=== PATIENT | male | born 1955 | race Two or more races ===

== ENCOUNTER 2016-08-19 18:55 | Inpatient (IN) | payer OTHER ==
[~2016-08-19] VITALS: Ht 177.8 cm; Wt 83.0 kg
[2016-08-19 19:46] LABS: TROPONIN I < 0.30 ng/mL (<=0.30)
[2016-08-19 19:47] LABS: ALBUMIN/GLOBULIN RATIO 1.8 (1.0-2.7); CALCIUM 9.3 mg/dL (8.6-10.2); CREATININE 1.4 mg/dL (0.7-1.2); GLOMERULAR FILTRATION RATE 51.2 mL/min (>60); POTASSIUM 3.5 mEQ/L (3.4-4.9); TOTAL PROTEIN 6.5 g/dL (6.6-8.7)
[2016-08-19 19:55] LABS: BASOPHILS % (AUTO) 0.9 % (0.0-2.0); LYMPHOCYTES % (AUTO) 20.5 % (20.0-45.0); MEAN CORPUSCULAR HEMOGLOBIN 32.2 PG (27.0-31.0); MEAN CORPUSCULAR HGB CONC 34.2 G/DL (32.0-36.0); MEAN CORPUSCULAR VOLUME 94 FL (80-99); MEAN PLATELET VOLUME 6.8 FL (6.5-10.1); MONOCYTES % (AUTO) 6.7 % (1.0-10.0); PLATELET COUNT 221 K/UL (150-450); RED CELL DISTRIBUTION WIDTH 11.9 % (11.6-14.8); WHITE BLOOD COUNT 7.6 K/UL (4.8-10.8)
[2016-08-19 21:46] VITALS: BP 115/69
--- NOTE | 2016-08-19 21:56 | Emergency Room Report ---
History of Present Illness General Chief Complaint: Chest Pain Source: Patient, Significant Other Present Illness HPI 61-year-old male presents to ED complaining of chest pain. Started at home tonight just prior to arrival. Started at rest. Pain is pressure-like, midsternal, nonradiating, initially a 8/10. Was given aspirin and nitroglycerin. At this time patient states he is no longer any chest pain. Denies shortness of breath. Notes history of hypertension and is on multiple medications. Denies smoking or drug use. No other aggravating relieving factors. Denies any other associated symptoms Allergies: Coded Allergies: No Known Allergies (Unverified , 08/19/16) Patient History Past Medical History: HTN Past Surgical History: none Pertinent Family History: none Social History: Denies: alcohol use, drug use, smoking Immunizations: UTD Reviewed Nursing Documentation: PMH: Agreed, PSxH: Agreed Nursing Documentation-PMH Hx Hypertension: Yes Review of Systems All Other Systems: negative except mentioned in HPI Physical Exam Vital Signs Date Time Temp Pulse Resp B/P Pulse Ox O2 Delivery O2 Flow Rate FiO2 08/19/16 18:50 100 18 142/90 96 Room Air Sp02 EP Interpretation: reviewed, normal General Appearance: no apparent distress, alert, GCS 15, non-toxic Head: normocephalic, atraumatic Eyes: bilateral eye PERRL, bilateral eye normal inspection ENT: hearing grossly normal, normal pharynx, no angioedema, normal voice Neck: full range of motion, supple/symm/no masses Respiratory: chest non-tender, lungs clear, normal breath sounds, speaking full sentences Cardiovascular #1: regular rate, rhythm, no edema Cardiovascular #2: 2+ carotid (R), 2+ carotid (L), 2+ radial (R), 2+ radial (L) , 2+ dorsalis pedis (R), 2+ dorsalis pedis (L) Gastrointestinal: normal bowel sounds, non tender, soft, non-distended, no guarding, no rebound Rectal: deferred Genitourinary: normal inspection, no CVA tenderness Musculoskeletal: back normal, gait/station normal, normal range of motion, non- tender Neurologic: alert, oriented x3, responsive, motor strength/tone normal, sensory intact, speech normal Psychiatric: judgement/insight normal, memory normal, mood/affect normal, no suicidal/homicidal ideation Reflexes: 3+ bicep (R), 3+ bicep (L), 3+ tricep (R), 3+ tricep (L), 3+ knee (R) , 3+ knee (L) Skin: normal color, no rash, warm/dry, well hydrated Lymphatic: no adenopathy Medical Decision Making Diagnostic Impression: Primary Impression: ACS (acute coronary syndrome) ER Course Hospital Course 61-year-old male presents ED complaining of CP. relieved with ASA/Nitro Differential diagnoses include: SD/unstable angina, contusion, muscle strain, PTX, rib fracture Clinical course Patient placed on stretcher. on information assurance specialist. After initial history and physical I ordered labs, EKG, chest x-ray, IVFs labs reviewed- no leukocytosis, hb/hct stable, electrolytes ok, trop negative EKG - NSR, no acute changes interpreted by me Chest x-ray- unremarkable Case discussed with Dr. Casas and he agreed to accept the patient to his service for further care and support I. I feel this is a highly complex case requiring extensive working including EKG/Rhythm strip, Xray/CT/US, Blood/urine lab work, repeat exams while in ED, and administration of strong opiates/narcotics for pain control, admission to hospital or close patient follow up. Diagnosis - ACS admitted to telemetry in serious condition Labs Test 08/19/16 19:20 White Blood Count 7.6 K/UL (4.8-10.8) Red Blood Count 4.70 M/UL (4.70-6.10) Hemoglobin 15.2 G/DL (14.2-18.0) Hematocrit 44.3 % (42.0-52.0) Mean Corpuscular Volume 94 FL (80-99) Mean Corpuscular Hemoglobin 32.2 PG (27.0-31.0) Mean Corpuscular Hemoglobin Concent 34.2 G/DL (32.0-36.0) Red Cell Distribution Width 11.9 % (11.6-14.8) Platelet Count 221 K/UL (150-450) Mean Platelet Volume 6.8 FL (6.5-10.1) Neutrophils (%) (Auto) 71.0 % (45.0-75.0) Lymphocytes (%) (Auto) 20.5 % (20.0-45.0) Monocytes (%) (Auto) 6.7 % (1.0-10.0) Eosinophils (%) (Auto) 1.0 % (0.0-3.0) Basophils (%) (Auto) 0.9 % (0.0-2.0) Sodium Level 144 mEQ/L (135-145) Potassium Level 3.5 mEQ/L (3.4-4.9) Chloride Level 101 mEQ/L (98-107) Carbon Dioxide Level 25 mEQ/L (20-30) Anion Gap 18 (5-15) Blood Urea Nitrogen 22 mg/dL (7-23) Creatinine 1.4 mg/dL (0.7-1.2) Estimat Glomerular Filtration Rate 51.2 mL/min (>60) Glucose Level 155 mg/dL (74-106) Calcium Level 9.3 mg/dL (8.6-10.2) Total Bilirubin 0.4 mg/dL (0.0-1.2) Aspartate Amino Transf (AST/SGOT) 20 U/L (5-40) Alanine Aminotransferase (ALT/SGPT) 14 U/L (3-41) Alkaline Phosphatase 49 U/L (40-129) Total Creatine Kinase 72 U/L (38-174) Creatine Kinase MB 2.0 ng/mL (< 6.7) Creatine Kinase MB Relative Index 2.7 Troponin I < 0.30 ng/mL (<=0.30) Pro-B-Type Natriuretic Peptide 65 pg/mL (0-125) Total Protein 6.5 g/dL (6.6-8.7) Albumin 4.2 g/dL (3.5-5.2) Globulin 2.3 g/dL Albumin/Globulin Ratio 1.8 (1.0-2.7) EKG Diagnostic Results Rate: normal Rhythm: NSR ST Segments: no acute changes ASA given to the pt in ED: No - given by ems Rhythm Strip Diag. Results EP Interpretation: yes Rhythm: NSR, no PVC's, no ectopy Chest X-Ray Diagnostic Results Chest X-Ray Ordered: Yes # of Views/Limited/Complete: 1 View EP Interpretation: Yes Interpretation: no consolidation, no effusion, no pneumothorax, no acute cardiopulmonary disease Indication: Chest Pain Impression: No acute disease Interpreting ER Provider: David Anderson MD Last Vital Signs Date Time Temp Pulse Resp B/P Pulse Ox O2 Delivery O2 Flow Rate FiO2 08/19/16 21:46 67 16 115/69 95 Room Air Status: improved Disposition: ADMITTED INPATIENT Condition: Serious Referrals: Kp QUINONEZ,REFERRING (PCP) DAVID ANDERSON M.D. Aug 19, 2016 21:56
[2016-08-19] MEDS ORDERED: DuoNeb 0.5-3(2.5)mg/3ml neb HHN PRN (22:00)
[2016-08-19] MEDS ORDERED: Nitroglycerin Subl 0.4mg tab (Bottle Of 25) SL PRN (22:00)
[2016-08-19] MEDS ORDERED: Diltiazem 25mg/5ml IV PRN (22:00)
[2016-08-19] MEDS ORDERED: Miralax 17gm pkt ORAL PRN (22:00)
[2016-08-19] MEDS ORDERED: Morphine Sulfate 2mg/ml Inj IVP PRN (22:00)
[2016-08-19] MEDS ORDERED: Enalaprilat 2.5mg/2ml Inj IV PRN (22:00)
[2016-08-19] MEDS ORDERED: MULTI VITAMIN1 EACH ORAL (23:28)
[2016-08-19] MEDS ORDERED: VITAMIN D1000 UNI1 ORAL (23:42)
[2016-08-19] MEDS ORDERED: CARDIZEM30 M1 PO (23:42)
[2016-08-19] MEDS ORDERED: VITAMIN C500 M1 ORAL (23:42)
[2016-08-19] MEDS ORDERED: CHLORTHALIDONE25 MG ORAL ×2 (23:42)
[2016-08-19] MEDS ORDERED: GLUCOSAMIN-CHO1 EAC1 PO (23:42)
[2016-08-19] MEDS ORDERED: APRESOLINE100 MG ORAL (23:42)
[2016-08-20] VITALS (7 sets, daily range): BP systolic 127–140; BP diastolic 76–94
[2016-08-20 07:08] LABS: BASOPHILS % (AUTO) 0.6 % (0.0-2.0); EOSINOPHILS % (AUTO) 1.5 % (0.0-3.0); LYMPHOCYTES % (AUTO) 19.6 % (20.0-45.0); MEAN CORPUSCULAR HEMOGLOBIN 32.2 PG (27.0-31.0); MEAN CORPUSCULAR HGB CONC 33.8 G/DL (32.0-36.0); MEAN CORPUSCULAR VOLUME 95 FL (80-99); MEAN PLATELET VOLUME 6.9 FL (6.5-10.1); MONOCYTES % (AUTO) 8.9 % (1.0-10.0); NEUTROPHILS % (AUTO) 69.3 % (45.0-75.0); PLATELET COUNT 215 K/UL (150-450); WHITE BLOOD COUNT 6.2 K/UL (4.8-10.8)
[2016-08-20 07:14] LABS: PROTHROMBIN TIME 10.3 SEC (9.30-11.50)
[2016-08-20 07:31] LABS: CHOLESTEROL 147 mg/dL (< 200); CHOLESTEROL/HDL RATIO 3.1 (3.3-4.4); CRP QUANT < 0.3 mg/dL (< 0.5); HEMOLYSIS 9; LDL CHOLESTEROL (CALC.) 83 mg/dL (60-99)
[2016-08-20 08:16] LABS: TROPONIN I < 0.30 ng/mL (<=0.30)
[2016-08-20] MEDS: Aspirin Baby 81mg ORAL SCH ×2 (08:57→09:00)
[2016-08-20] MEDS: Heparin 5000 units/ml inj SUBQ SCH ×3 (08:58→20:58)
[2016-08-20] MEDS ORDERED: Ketorolac 30mg Inj IV PRN (12:30)
--- NOTE | 2016-08-20 12:30 | History and Physical ---
History of Present Illness General Date patient seen: Aug 20, 2016 Reason for Hospitalization: Chest Pain Present Illness HPI 61-year-old male with hx of HTN presents to ED complaining of chest pain. Started at rest. Pain is pressure-like, midsternal, nonradiating, initially a 8 /10. Was given aspirin and nitroglycerin. At this time patient states he is no longer any chest pain. Denies shortness of breath. Notes history of hypertension and is on multiple medications. Denies smoking or drug use. No other aggravating relieving factors. Denies any other associated symptoms Allergies: Coded Allergies: No Known Allergies (Unverified , 08/19/16) Medication History Scheduled Ascorbic Acid* (Vitamin C*), 500 MG ORAL DAILY, (Reported) Chlorthalidone* (Chlorthalidone*), 12.5 MG ORAL DAILY, (Reported) Chlorthalidone* (Chlorthalidone*), 25 MG ORAL EVERY OTHER DAY, (Reported) Cholecalciferol (Vitamin D3)* (Vitamin D*), 2,000 UNITS ORAL DAILY, (Reported) Diltiazem Hcl* (Cardizem*), 30 MG PO TID, (Reported) Hydralazine HCl (Hydralazine HCl), 100 MG ORAL EVERY 8 HOURS, (Reported) Multivitamin (Multi Vitamin Daily), 1 TAB ORAL DAILY, (Reported) Miscellaneous Medications Gluc/Prince-Msm#2/C/D3/Ki/Born (Fdpwbxytie-Amqfkpaqdyo-Xui Tab), 1 EACH PO, ( Reported) Patient History Healthcare decision maker N Resuscitation status Full Code Advanced Directive on File No Past Medical/Surgical History Past Medical/Surgical History: (1) HTN (hypertension) Review of Systems Constitutional: Reports: no symptoms ENT: Reports: no symptoms Physical Exam General Appearance: WD/WN Lines, tubes and drains: peripheral HEENT: normocephalic, atraumatic Neck: non-tender, normal alignment Respiratory/Chest: chest wall non-tender, normal breath sounds Breasts: no masses Cardiovascular/Chest: normal peripheral pulses Abdomen: non tender Genitourinary/Rectal: normal genital exam Extremities: normal range of motion Last 24 Hour Vital Signs Date Time Temp Pulse Resp B/P Pulse Ox O2 Delivery O2 Flow Rate FiO2 08/20/16 08:00 95.7 59 17 127/82 95 08/20/16 07:30 66 20 Room Air 21 08/20/16 04:00 97.9 62 18 132/76 95 Room Air 08/20/16 04:00 63 08/20/16 01:00 62 20 Room Air 21 08/20/16 00:00 58 08/20/16 00:00 97.9 64 18 132/76 95 Room Air 08/19/16 21:46 67 16 115/69 95 Room Air 08/19/16 21:46 67 16 115/69 95 Room Air 08/19/16 19:40 100 18 Room Air 08/19/16 18:50 100 18 142/90 96 Room Air Intake and Output 08/19/16 08/20/16 19:00 07:00 Intake Total 240 ml Output Total 0 ml Balance 240 ml Intake Oral 240 ml Output Urine Total 0 ml Laboratory Tests Test 08/19/16 19:20 08/20/16 05:35 White Blood Count 7.6 K/UL (4.8-10.8) 6.2 K/UL (4.8-10.8) Red Blood Count 4.70 M/UL (4.70-6.10) 4.80 M/UL (4.70-6.10) Hemoglobin 15.2 G/DL (14.2-18.0) 15.5 G/DL (14.2-18.0) Hematocrit 44.3 % (42.0-52.0) 45.8 % (42.0-52.0) Mean Corpuscular Volume 94 FL (80-99) 95 FL (80-99) Mean Corpuscular Hemoglobin 32.2 PG (27.0-31.0) H 32.2 PG (27.0-31.0) H Mean Corpuscular Hemoglobin Concent 34.2 G/DL (32.0-36.0) 33.8 G/DL (32.0-36.0) Red Cell Distribution Width 11.9 % (11.6-14.8) 12.0 % (11.6-14.8) Platelet Count 221 K/UL (150-450) 215 K/UL (150-450) Mean Platelet Volume 6.8 FL (6.5-10.1) 6.9 FL (6.5-10.1) Neutrophils (%) (Auto) 71.0 % (45.0-75.0) 69.3 % (45.0-75.0) Lymphocytes (%) (Auto) 20.5 % (20.0-45.0) 19.6 % (20.0-45.0) L Monocytes (%) (Auto) 6.7 % (1.0-10.0) 8.9 % (1.0-10.0) Eosinophils (%) (Auto) 1.0 % (0.0-3.0) 1.5 % (0.0-3.0) Basophils (%) (Auto) 0.9 % (0.0-2.0) 0.6 % (0.0-2.0) Sodium Level 144 mEQ/L (135-145) Potassium Level 3.5 mEQ/L (3.4-4.9) Chloride Level 101 mEQ/L (98-107) Carbon Dioxide Level 25 mEQ/L (20-30) Anion Gap 18 (5-15) H Blood Urea Nitrogen 22 mg/dL (7-23) Creatinine 1.4 mg/dL (0.7-1.2) H Estimat Glomerular Filtration Rate 51.2 mL/min (>60) Glucose Level 155 mg/dL (74-106) H Calcium Level 9.3 mg/dL (8.6-10.2) Total Bilirubin 0.4 mg/dL (0.0-1.2) Aspartate Amino Transf (AST/SGOT) 20 U/L (5-40) Alanine Aminotransferase (ALT/SGPT) 14 U/L (3-41) Alkaline Phosphatase 49 U/L (40-129) Total Creatine Kinase 72 U/L (38-174) Pending Creatine Kinase MB 2.0 ng/mL (< 6.7) Creatine Kinase MB Relative Index 2.7 Troponin I < 0.30 ng/mL (<=0.30) < 0.30 ng/mL (<=0.30) Pro-B-Type Natriuretic Peptide 65 pg/mL (0-125) Total Protein 6.5 g/dL (6.6-8.7) L Albumin 4.2 g/dL (3.5-5.2) Globulin 2.3 g/dL Albumin/Globulin Ratio 1.8 (1.0-2.7) Prothrombin Time 10.3 SEC (9.30-11.50) Prothromb Time International Ratio 1.0 (0.9-1.1) Activated Partial Thromboplast Time 28 SEC (23-33) Uric Acid Pending C-Reactive Protein, Quantitative < 0.3 mg/dL (< 0.5) Triglycerides Level 87 mg/dL (< 150) Cholesterol Level 147 mg/dL (< 200) LDL Cholesterol 83 mg/dL (60-99) HDL Cholesterol 47 mg/dL (> 60) Cholesterol/HDL Ratio 3.1 (3.3-4.4) L Thyroid Stimulating Hormone (TSH) 2.040 uIU/mL (0.300-4.500) Height (Feet): 5 Height (Inches): 10.00 Weight (Pounds): 183 Medications Current Medications Medications (Trade) Dose Ordered Sig/Enrique Route PRN Reason Start Time Stop Time Status Last Admin Dose Admin Acetaminophen (Tylenol) 650 mg Q4H PRN ORAL FEVER 08/19/16 22:00 09/18/16 21:59 Albuterol/ Ipratropium (DuoNeb 0.5-3(2.5)mg/3ml) 3 ml EVERY 4 HOURS PRN HHN Shortness of Breath 08/19/16 22:00 08/24/16 21:59 Aspirin (ASA) 162 mg DAILY ORAL 08/20/16 09:00 09/19/16 08:59 Diltiazem HCl (Cardizem) 10 mg EVERY HOUR PRN IV heart rate more than 120, 08/19/16 22:00 09/18/16 21:59 Enalaprilat (Vasotec) 2.5 mg EVERY 6 HOURS PRN IV sbp more than 160 08/19/16 22:00 09/18/16 21:59 Heparin Sodium (Porcine) (Heparin 5000 units/ml) 5,000 units EVERY 12 HOURS SUBQ 08/20/16 09:00 09/19/16 08:59 Ketorolac Tromethamine (Toradol 30mg) 30 mg Q6HR PRN IV moderate pain ( 4-6) 08/20/16 12:30 08/25/16 12:29 Morphine Sulfate (Morphine Sulfate) 2 mg EVERY 4 HOURS PRN IVP severe Pain (Pain Scale 7-10) 08/19/16 22:00 08/26/16 21:59 Nitroglycerin (Ntg) 0.4 mg Every 5 Minutes PRN SL Prn Chest Pain 08/19/16 22:00 09/18/16 21:59 Ondansetron HCl (Zofran) 4 mg Q6H PRN IVP Nausea & Vomiting 08/19/16 22:00 09/18/16 21:59 Pantoprazole (Protonix) 40 mg DAILY ORAL 08/20/16 09:00 09/19/16 08:59 08/20/16 08:56 Polyethylene Glycol (Miralax) 17 gm DAILYPRN PRN ORAL Constipation 08/19/16 22:00 09/18/16 21:59 Temazepam (Restoril) 15 mg HSPRN PRN ORAL Insomnia 08/19/16 22:00 08/26/16 21:59 Assessment/Plan Problem List: (1) ACS (acute coronary syndrome) ICD Codes: I24.9 - Acute ischemic heart disease, unspecified SNOMED: 598000914 (2) HTN (hypertension) ICD Codes: I10 - Essential (primary) hypertension SNOMED: 72341022 Assessment/Plan telemetry monitoring serial ekg, torponin echo monitor bp dvt prophylaxis TORIE MILLER Aug 20, 2016 12:30
[2016-08-20 12:48] LABS: URIC ACID 6.1 mg/dL (3.0-7.5)
--- NOTE | 2016-08-20 14:45 | Cardiology Report ---
APPROVED REPORT EXAM: Two-dimensional and M-mode echocardiogram with Doppler and color Doppler. INDICATION Left ventricular function M-Mode DIMENSIONS IVSd1.3 (0.7-1.1cm)Left Atrium (MM)2.3 (1.6-4.0cm) LVDd4.6 (3.5-5.6cm)Aortic Root3.0 (2.0-3.7cm) PWd1.1 (0.7-1.1cm)Aortic Cusp Exc.1.9 (1.5-2.0cm) LVDs3.6 (2.5-4.0cm) PWs1.0 cm Technically difficult study due to poor acoustic windows. Images taken subcostal view. Normal left ventricular chamber size, systolic function and wall motion. Left ventricular ejection fraction estimated to be 55-60 %. No evidence of left ventricular hypertrophy. No evidence of pericardial fat or effusion. All other cardiac chamber sizes are within normal limits. Focal aortic valve sclerosis with adequate cusp excursion Thickened mitral valve leaflets with normal excursion. Mitral annulus and aortic root calcification. Pulmonic valve not well visualized. Normal tricuspid valve structure. IVC is normal in size with physiologic collapse. A color flow and spectral Doppler study was performed and revealed: No aortic regurgitation. No mitral regurgitation. No tricuspid regurgitation. Tricuspid systolic velocities suggests peak right ventricular systolic pressure of 19 mmHg
--- NOTE | 2016-08-20 15:09 | Diagnostic Imaging Report ---
Indications: Chest pain Technique: Findings: Comparison: None Hyperlucency in attenuation of bronchovascular markings in both upper lung zones. Mildly increased interstitial markings in both lung bases. Suggestion of small calcified nodule right lower lung. No pleural abnormalities. Heart size within normal limits. Thoracic aorta calcified, mildly elongated. IMPRESSION: Findings compatible with COPD Suggestion of calcified granuloma right lung Aortosclerosis and probable chronic hypertensive change
[2016-08-20 16:01] LABS: APPEARANCE,URINE CLEAR; KETONES,URINE NEGATIVE (NEGATIVE); LEUKOCYTE ESTERASE ,URINE 2+ (NEGATIVE); NITRITE,URINE NEGATIVE (NEGATIVE); PH,URINE 6 (4.5-8.0); PROTEIN,URINE NEGATIVE (NEGATIVE); UROBILINOGEN,URINE NORMAL MG/DL (0.0-1.0)
[2016-08-20 16:12] LABS: RBC,URINE 0-2 /HPF (0 - 0)
[2016-08-20 16:13] LABS: AMORPHOUS SEDIMENT,UR FEW /LPF; BACTERIA,URINE FEW /HPF
--- NOTE | 2016-08-20 16:20 | Diagnostic Imaging Report ---
Indications: Abnormal renal function tests, hypertension Technique: Transabdominal real-time grayscale and duplex Doppler imaging of the kidneys, retroperitoneum, and urinary bladder was performed Findings: Comparison: None Right kidney measures 12.7 cm in length. Normal contour, echotexture, cortical thickness. Contains multiple punctate echogenic non-shadowing foci. No additional focal lesions, hydronephrosis, or obvious perinephric abnormalities. Left kidney measures 11.4 cm in length. Normal contour, echotexture, cortical thickness. No stones, other focal lesions, hydronephrosis, or obvious perinephric abnormalities. The intrahepatic portion of inferior vena cava is patent and normal caliber. Incidentally noted are several circumscribed hyperechoic solid nodules in the spleen up to 10 mm diameter The urinary bladder is moderately distended with mild mural thickening. Prostate volume 65 cc.. IMPRESSION: Suggestion of small nodular, nonobstructing stones versus other nonspecific specular reflectors in the left kidney Otherwise sonographically unremarkable bilateral kidneys Splenic lesions--hemangiomas versus metastases. Multiphasic contrast-enhanced CT scan of the abdomen and pelvis recommended for further evaluation. Urinary bladder distention and mural thickening may be secondary to outlet obstruction. Enlarged prostate.
--- NOTE | 2016-08-20 19:19 | Cardiology Progress Note ---
Assessment/Plan Assessment/Plan The patient is seen and examined, full consult note is dictated. Objective Last 24 Hour Vital Signs Date Time Temp Pulse Resp B/P Pulse Ox O2 Delivery O2 Flow Rate FiO2 08/20/16 17:06 96.9 53 18 130/86 95 Room Air 08/20/16 16:00 96.8 53 18 130/86 95 Room Air 08/20/16 12:00 97.4 60 17 130/84 98 Room Air 08/20/16 12:00 56 08/20/16 08:00 62 08/20/16 08:00 95.7 59 17 127/82 95 08/20/16 07:30 66 20 Room Air 21 08/20/16 04:00 97.9 62 18 132/76 95 Room Air 08/20/16 04:00 63 08/20/16 01:00 62 20 Room Air 21 08/20/16 00:00 58 08/20/16 00:00 97.9 64 18 132/76 95 Room Air 08/19/16 21:46 67 16 115/69 95 Room Air 08/19/16 21:46 67 16 115/69 95 Room Air 08/19/16 19:40 100 18 Room Air Intake and Output 08/19/16 08/20/16 19:00 07:00 Intake Total 240 ml Output Total 0 ml Balance 240 ml Intake Oral 240 ml Output Urine Total 0 ml Laboratory Tests Test 08/19/16 19:20 08/20/16 05:35 08/20/16 15:42 White Blood Count 7.6 K/UL (4.8-10.8) 6.2 K/UL (4.8-10.8) Red Blood Count 4.70 M/UL (4.70-6.10) 4.80 M/UL (4.70-6.10) Hemoglobin 15.2 G/DL (14.2-18.0) 15.5 G/DL (14.2-18.0) Hematocrit 44.3 % (42.0-52.0) 45.8 % (42.0-52.0) Mean Corpuscular Volume 94 FL (80-99) 95 FL (80-99) Mean Corpuscular Hemoglobin 32.2 PG (27.0-31.0) H 32.2 PG (27.0-31.0) H Mean Corpuscular Hemoglobin Concent 34.2 G/DL (32.0-36.0) 33.8 G/DL (32.0-36.0) Red Cell Distribution Width 11.9 % (11.6-14.8) 12.0 % (11.6-14.8) Platelet Count 221 K/UL (150-450) 215 K/UL (150-450) Mean Platelet Volume 6.8 FL (6.5-10.1) 6.9 FL (6.5-10.1) Neutrophils (%) (Auto) 71.0 % (45.0-75.0) 69.3 % (45.0-75.0) Lymphocytes (%) (Auto) 20.5 % (20.0-45.0) 19.6 % (20.0-45.0) L Monocytes (%) (Auto) 6.7 % (1.0-10.0) 8.9 % (1.0-10.0) Eosinophils (%) (Auto) 1.0 % (0.0-3.0) 1.5 % (0.0-3.0) Basophils (%) (Auto) 0.9 % (0.0-2.0) 0.6 % (0.0-2.0) Sodium Level 144 mEQ/L (135-145) Potassium Level 3.5 mEQ/L (3.4-4.9) Chloride Level 101 mEQ/L (98-107) Carbon Dioxide Level 25 mEQ/L (20-30) Anion Gap 18 (5-15) H Blood Urea Nitrogen 22 mg/dL (7-23) Creatinine 1.4 mg/dL (0.7-1.2) H Estimat Glomerular Filtration Rate 51.2 mL/min (>60) Glucose Level 155 mg/dL (74-106) H Calcium Level 9.3 mg/dL (8.6-10.2) Total Bilirubin 0.4 mg/dL (0.0-1.2) Aspartate Amino Transf (AST/SGOT) 20 U/L (5-40) Alanine Aminotransferase (ALT/SGPT) 14 U/L (3-41) Alkaline Phosphatase 49 U/L (40-129) Total Creatine Kinase 72 U/L (38-174) 54 U/L (38-174) Creatine Kinase MB 2.0 ng/mL (< 6.7) Creatine Kinase MB Relative Index 2.7 Troponin I < 0.30 ng/mL (<=0.30) < 0.30 ng/mL (<=0.30) Pro-B-Type Natriuretic Peptide 65 pg/mL (0-125) Total Protein 6.5 g/dL (6.6-8.7) L Albumin 4.2 g/dL (3.5-5.2) Globulin 2.3 g/dL Albumin/Globulin Ratio 1.8 (1.0-2.7) Prothrombin Time 10.3 SEC (9.30-11.50) Prothromb Time International Ratio 1.0 (0.9-1.1) Activated Partial Thromboplast Time 28 SEC (23-33) Uric Acid 6.1 mg/dL (3.0-7.5) C-Reactive Protein, Quantitative < 0.3 mg/dL (< 0.5) Triglycerides Level 87 mg/dL (< 150) Cholesterol Level 147 mg/dL (< 200) LDL Cholesterol 83 mg/dL (60-99) HDL Cholesterol 47 mg/dL (> 60) Cholesterol/HDL Ratio 3.1 (3.3-4.4) L Thyroid Stimulating Hormone (TSH) 2.040 uIU/mL (0.300-4.500) Urine Color Pale yellow Urine Appearance Clear Urine pH 6 (4.5-8.0) Urine Specific [place] 1.020 (1.005-1.035) Urine Protein Negative (NEGATIVE) Urine Glucose (UA) Negative (NEGATIVE) Urine Ketones Negative (NEGATIVE) Urine Occult Blood Negative (NEGATIVE) Urine Nitrite Negative (NEGATIVE) Urine Bilirubin Negative (NEGATIVE) Urine Urobilinogen Normal MG/DL (0.0-1.0) Urine Leukocyte Esterase 2+ (NEGATIVE) H Urine RBC 0-2 /HPF (0 - 0) H Urine WBC 2-4 /HPF (0 - 0) Urine Squamous Epithelial Cells None /LPF (NONE/OCC) Urine Amorphous Sediment Few /LPF (NONE) H Urine Bacteria Few /HPF (NONE) Urine Eosinophils None seen Urine Random Sodium 149 mmol/L Urine Potassium Timed 39 mmol/L JOSE D CRANE Aug 20, 2016 19:18
[2016-08-21] VITALS: BP 134/94
[2016-08-21 04:00] VITALS: BP 133/86
[2016-08-21 07:43] VITALS: BP 139/81
[2016-08-21 08:12] LABS: TROPONIN I < 0.30 ng/mL (<=0.30)
[2016-08-21] MEDS: Aspirin Baby 81mg ORAL SCH (08:51)
[2016-08-21] MEDS: Heparin 5000 units/ml inj SUBQ SCH (08:56)
--- NOTE | 2016-08-21 10:11 | Diagnostic Imaging Report ---
ndication: Chest pain Technique: IV administration nonionic contrast. Spiral acquisitions obtained from the lung bases to the lung apices. Multiplanar and 3-D reconstructions were generated. Total dose length product 834 mGycm. CTDIvol(s) 12, 12, 12, 12, 24 mGy. Dose reduction achieved using automated exposure control Comparison: 12/11/[address] Findings: No intraluminal filling defects or other findings to suggest acute pulmonary embolus demonstrated. No evidence of thoracic aortic aneurysm or dissection. Normal great vessel branching anatomy. The bilateral main pulmonary arteries are dilated, each measuring 3 cm in diameter. There is also right ventricular dilatation. The pulmonary arterial dilatation is also evident on the prior exam. The right ventricular caliber cannot be assessed due to lack of IV contrast on the previous study. The lungs are diffusely hyperinflated, particularly upper lobe, as in COPD. Mosaic groundglass opacities in the lower lobes likely also are the basis of COPD changes. Or posterior dependent atelectatic changes. No infiltrate, mass, or nodule demonstrated. No effusion. No mediastinal hilar mass or adenopathy. No axillary or chest wall mass or adenopathy. There are minimal degenerative changes of the thoracic spine A 16 mm low-attenuation lesion is seen in the spleen, not evident on the prior noncontrasted view study. There is been interim gastric surgery. Impression: Negative for acute pulmonary embolus Pulmonary arterial and right ventricular dilatation, likely indicating pulmonary hypertension Evidence of pulmonary emphysematous changes 16 mm low-attenuation splenic lesion nonspecific. Further evaluation with dedicated abdominal CT or MRI should be considered This agrees with the preliminary interpretation provided overnight by Dr. Morrison The CT scanner at [facility] is accredited by the [place] and the scans are performed using protocols designed to limit radiation exposure to as low as reasonably achievable to attain images of sufficient resolution adequate for diagnostic evaluation.
[2016-08-21 11:22] VITALS: BP 134/86
--- NOTE | 2016-08-21 13:10 | Pulmonology Progress Note ---
Assessment/Plan Problems: (1) ACS (acute coronary syndrome) (2) HTN (hypertension) Assessment/Plan stress test today dc home if negative today all reviewed. Subjective ROS Limited/Unobtainable: Yes Allergies: Coded Allergies: No Known Allergies (Unverified , 08/19/16) Objective Last 24 Hour Vital Signs Date Time Temp Pulse Resp B/P Pulse Ox O2 Delivery O2 Flow Rate FiO2 08/21/16 11:22 96.8 53 20 134/86 98 Room Air 08/21/16 10:03 66 18 Room Air 08/21/16 07:52 62 08/21/16 07:43 96.6 52 20 139/81 97 Room Air 08/21/16 04:00 51 08/21/16 04:00 96.9 58 16 133/86 95 Room Air 08/21/16 00:00 96.9 53 16 134/94 95 Room Air 21 08/21/16 00:00 53 08/20/16 20:00 96.9 68 16 140/94 95 Room Air 08/20/16 20:00 72 08/20/16 19:30 65 20 Room Air 08/20/16 17:06 96.9 53 18 130/86 95 Room Air 08/20/16 16:00 96.8 53 18 130/86 95 Room Air Intake and Output 08/20/16 08/21/16 19:00 07:00 Intake Total 1440 ml Balance 1440 ml Intake Oral 760 ml Other 680 ml # Voids 3 General Appearance: WD/WN Respiratory/Chest: chest wall non-tender, lungs clear Cardiovascular: normal peripheral pulses, normal rate Abdomen: normal bowel sounds, soft, non tender Genitourinary: normal external genitalia Extremities: no cyanosis Skin: no rash, no ulcers Neurologic/Psychiatric: no motor/sensory deficits Laboratory Tests 08/20/16 15:42: Urine Color Pale yellow, Urine Appearance Clear, Urine pH 6, Urine Specific [place] 1.020, Urine Protein Negative, Urine Glucose (UA) Negative, Urine Ketones Negative, Urine Occult Blood Negative, Urine Nitrite Negative, Urine Bilirubin Negative, Urine Urobilinogen Normal, Urine Leukocyte Esterase 2+H, Urine RBC 0-2H, Urine WBC 2-4, Urine Squamous Epithelial Cells None, Urine Amorphous Sediment FewH, Urine Bacteria Few, Urine Eosinophils None seen, Urine Random Sodium 149, Urine Potassium Timed 39 08/21/16 07:30: Troponin I < 0.30 Current Medications Medications (Trade) Dose Ordered Sig/Enrique Route PRN Reason Start Time Stop Time Status Last Admin Dose Admin Acetaminophen (Tylenol) 650 mg Q4H PRN ORAL FEVER 08/19/16 22:00 09/18/16 21:59 Albuterol/ Ipratropium (DuoNeb 0.5-3(2.5)mg/3ml) 3 ml EVERY 4 HOURS PRN HHN Shortness of Breath 08/19/16 22:00 08/24/16 21:59 Aspirin (ASA) 162 mg DAILY ORAL 08/20/16 09:00 09/19/16 08:59 08/21/16 08:51 Diltiazem HCl (Cardizem) 10 mg EVERY HOUR PRN IV heart rate more than 120, 08/19/16 22:00 09/18/16 21:59 Enalaprilat (Vasotec) 2.5 mg EVERY 6 HOURS PRN IV sbp more than 160 08/19/16 22:00 09/18/16 21:59 Heparin Sodium (Porcine) (Heparin 5000 units/ml) 5,000 units EVERY 12 HOURS SUBQ 08/20/16 09:00 09/19/16 08:59 08/21/16 08:56 Ketorolac Tromethamine (Toradol 30mg) 30 mg Q6HR PRN IV moderate pain ( 4-6) 08/20/16 12:30 08/25/16 12:29 Morphine Sulfate (Morphine Sulfate) 2 mg EVERY 4 HOURS PRN IVP severe Pain (Pain Scale 7-10) 08/19/16 22:00 08/26/16 21:59 Nitroglycerin (Ntg) 0.4 mg Every 5 Minutes PRN SL Prn Chest Pain 08/19/16 22:00 09/18/16 21:59 Ondansetron HCl (Zofran) 4 mg Q6H PRN IVP Nausea & Vomiting 08/19/16 22:00 09/18/16 21:59 Pantoprazole (Protonix) 40 mg DAILY ORAL 08/20/16 09:00 09/19/16 08:59 08/21/16 08:51 Polyethylene Glycol (Miralax) 17 gm DAILYPRN PRN ORAL Constipation 08/19/16 22:00 09/18/16 21:59 Temazepam (Restoril) 15 mg HSPRN PRN ORAL Insomnia 08/19/16 22:00 08/26/16 21:59 TORIE MILLER Aug 21, 2016 13:10
--- NOTE | 2016-08-21 15:09 | Cardiology Report ---
APPROVED REPORT EKG Measurement Heart [id number] Normal sinus rhythm Nonspecific ST abnormality Abnormal ECG
[2016-08-21 15:30] VITALS: BP 138/98
--- NOTE | 2016-08-21 16:37 | Diagnostic Imaging Report ---
Indications: Chest pain of shortness of breath, hypertension Technique: Single day single isotope protocol utilized. Initially, resting images obtained using IV administration 10.1 millicuries 99M technetium Myoview. Subsequently, patient underwent Dobutamine stress testing. See cardiology report for details. During dobutamine infusion, IV administration 20.5 mCi 99 M technetium Myoview. SPECT and planar images obtained. SPECT images gated to 8 phases of the cardiac cycle were also obtained, and reformatted into cine images for evaluation of ejection fraction. Comparison: Findings: Presence or absence of symptoms during infusion is not recorded on the cardiology report. Per cardiology report, resting EKG demonstrates sinus bradycardia attain fusion, patient demonstrated a run of 3 PVCs, no significant ST-T wave changes. Imaging demonstrates enlarged inferior wall post stress perfusion defect which extends to the apex. It is unchanged on the resting images. No other perfusion defects are demonstrated. No reversible perfusion defects are demonstrated. Calculated post stress ejection fraction 70%. No focal wall motion abnormality demonstrated. Impression: Nonischemic clinical response to pharmacologic stress, per cardiology report Nonischemic electrocardiographic response to pharmacologic stress, per cardiology report Fixed inferior wall perfusion defect. Appearance highly suggestive inferior wall infarct. However, normal ejection fraction and absence of wall motion abnormality on gated images raises possibility that this could just represent soft tissue attenuation artifact. Correlate with findings on recent echocardiogram. No evidence of ischemia at level of stress achieved Calculated post stress ejection fraction 70%
--- NOTE | 2016-08-22 12:25 | Discharge Summary ---
Discharge Summary Hospital Course Date of Admission Aug 19, 2016 at 20:00 Date of Discharge Aug 21, 2016 at 17:45 Admitting Diagnosis ACS HPI Jarod Yee is a 61 year old male who was admitted on Aug 19, 2016 at 20:00 for Acute Coronary Syndrome Hospital Course [id number] Discharge Discharge Disposition Patient was discharged to Home (01) Discharge Diagnoses: Rylie Deutsch NP Aug 22, 2016 12:25
--- NOTE | 2016-08-22 22:46 | Discharge Summary 2 SIG ---
DATE OF ADMISSION: 08/19/2016 DATE OF DISCHARGE: 08/21/2016 CONSULTATION: Malcom Craig M.D. BRIEF HOSPITAL COURSE: The patient is a 61-year-old male with hypertension who presented to ED complaining of chest pain that started at rest. The pain was described to be midsternal, nonradiating, and pressure-like. Initially was 8/10. He was given nitroglycerin and aspirin. Workup at ED showed an EKG, in normal sinus rhythm, with no acute changes. Initial troponin was negative. Chest x-ray done showed findings compatible with COPD. He was admitted to telemetry for cardiac evaluation. Cardiac enzymes were monitored. He underwent CTA of the chest that was negative for acute PE. Echocardiogram done showed ejection fraction of 55% to 60% with no evidence of left ventricular hypertrophy. No evidence of pericardial fat or effusion. He underwent a myocardial perfusion scan. Results were nonischemic. The patient was discharged home. Advised to follow up with PMD. FINAL DIAGNOSES: 1. Acute coronary syndrome. 2. Hypertension. Clementine Casas M.D. I have been assigned to dictate discharge summary on this account and I was not involved in the patient's management. Rylie Deutsch N.P. DR: TARAH JOB#: [id number] CC:
== END 2016-08-21 17:45 | disposition home or self-care (01) | DRG 311 ==
LOC: EDBD 18:55 → EMR 19:42 → 2E 20:00 → EDBEDREQ 20:38
DX: I24.9 Acute ischemic heart disease, unspecified (principal); J44.9 Chronic obstructive pulmonary disease, unspecified; I10 Essential (primary) hypertension
CPT/HCPCS: 36415; 71010; 71275; 76775; 78452; 80053; 80061; 81001; 82550; 82553; 83880; 84133; 84300; 84443; 84484; 84550; 85025; 85379; 85610; 85730; 86140; 89050; 93005; 93017; 93306; 94664